=== PATIENT | female | born 1980 | race Caucasian/White ===

== ENCOUNTER 2019-06-15 11:59 | Day surgery (SDC) | payer OTHER ==
[2019-06-15] MEDS ORDERED: LIDOCAINE 2% (SDV) 5 ML INJ (15:56)
[2019-06-15] MEDS ORDERED: PROPOFOL 40 ML (15:56)
== END 2019-06-15 16:52 | disposition home or self-care (01) ==
LOC: GIL 11:59
DX: K64.8 Other hemorrhoids (principal); K92.1 Melena; E66.9 Obesity, unspecified; Z68.37 Body mass index [BMI] 37.0-37.9, adult
CPT/HCPCS: 45378